=== PATIENT | male | born 1955 | race Caucasian/White ===

== ENCOUNTER 2019-05-19 07:59 | Inpatient (IN) ==
--- NOTE | 2019-04-16 11:51 | PAT Medication Instructions ---
Medication Instructions Date of Service April 16, 2019 Home Medications albuterol sulfate [Ventolin HFA] 2 puff INHALATION Q6H PRN allopurinol 100 mg PO QPM ascorbic acid (vitamin C) [Vitamin C] 500 mg PO QPM aspirin [Aspir-81] 81 mg PO QPM baclofen 10 mg PO TID calcium carbonate [Tums] 750 mg PO TID chlorthalidone 25 mg PO QAM cholecalciferol (vitamin D3) [Vitamin D3] 1,000 unit PO QAM cyanocobalamin (vitamin B-12) 500 mcg PO QAM dicyclomine 10 mg PO QID diphenoxylate-atropine 1 tab PO TID PRN docusate sodium [Stool Softener] 100 - 200 mg PO TID PRN epinephrine [EpiPen] 0.3 mg IM Q3H PRN fenofibrate 160 mg PO QAM fexofenadine [Jodie Allergy] 360 mg PO BID fluticasone propionate 1 spray INTRANASAL HS fluticasone propionate [Flovent HFA] 2 puff INHALATION BID insulin glargine [Lantus Solostar U-100 Insulin] 15 - 30 unit SUBCUT TID insulin lispro [Humalog U-100 Insulin] 15 unit SUBCUT BID insulin lispro [Humalog U-100 Insulin] 30 unit SUBCUT PM lorazepam 0.5 mg PO BID losartan 50 mg PO QPM magnesium oxide-Mg AA chelate 1 tab PO BID mirabegron [Myrbetriq] 25 mg PO QAM nitroglycerin [Nitromist] 0.4 mcg SUBLINGUAL UD PRN nortriptyline 10 - 20 mg PO BID potassium chloride 10 meq PO BID pravastatin 20 mg PO HS pregabalin [Lyrica] 150 mg PO BID ranitidine HCl 150 mg PO BID sildenafil (antihypertensive) 100 mg PO HS PRN tamsulosin 0.4 mg PO QPM trazodone 50 mg PO HS vitamin E 400 unit PO QPM escitalopram oxalate 5 mg PO QPM Continue as directed nitroglycerin [Nitromist] 0.4 mcg SUBLINGUAL UD PRN (if needed) epinephrine [EpiPen] 0.3 mg IM Q3H PRN (if needed) ASK your prescriber and surgeon aspirin [Aspir-81] 81 mg PO QPM STOP taking 2 weeks before surgery (or as soon as possible if surgery is within 2 weeks) vitamin E 400 unit PO QPM STOP taking 48 hours before surgery fenofibrate 160 mg PO QAM DO NOT take the morning of surgery baclofen 10 mg PO TID calcium carbonate [Tums] 750 mg PO TID chlorthalidone 25 mg PO QAM cholecalciferol (vitamin D3) [Vitamin D3] 1,000 unit PO QAM cyanocobalamin (vitamin B-12) 500 mcg PO QAM dicyclomine 10 mg PO QID diphenoxylate-atropine 1 tab PO TID PRN docusate sodium [Stool Softener] 100 - 200 mg PO TID PRN fexofenadine [Jodie Allergy] 360 mg PO BID insulin lispro [Humalog U-100 Insulin] 15 unit SUBCUT BID magnesium oxide-Mg AA chelate 1 tab PO BID mirabegron [Myrbetriq] 25 mg PO QAM potassium chloride 10 meq PO BID ranitidine HCl 150 mg PO BID Take morning of surgery With a small sip of water, OTHERWISE NOTHING TO EAT OR DRINK AFTER MIDNIGHT: albuterol sulfate [Ventolin HFA] 2 puff INHALATION Q6H PRN (if needed) fluticasone propionate [Flovent HFA] 2 puff INHALATION BID lorazepam 0.5 mg PO BID nortriptyline 10 - 20 mg PO BID pregabalin [Lyrica] 150 mg PO BID Take evening before surgery albuterol sulfate [Ventolin HFA] 2 puff INHALATION Q6H PRN (if needed) allopurinol 100 mg PO QPM ascorbic acid (vitamin C) [Vitamin C] 500 mg PO QPM baclofen 10 mg PO TID calcium carbonate [Tums] 750 mg PO TID dicyclomine 10 mg PO QID diphenoxylate-atropine 1 tab PO TID PRN (if needed) docusate sodium [Stool Softener] 100 - 200 mg PO TID PRN (if needed) fexofenadine [Jodie Allergy] 360 mg PO BID fluticasone propionate 1 spray INTRANASAL HS fluticasone propionate [Flovent HFA] 2 puff INHALATION BID insulin glargine [Lantus Solostar U-100 Insulin] 15 - 30 unit SUBCUT TID insulin lispro [Humalog U-100 Insulin] 15 unit SUBCUT BID insulin lispro [Humalog U-100 Insulin] 30 unit SUBCUT PM lorazepam 0.5 mg PO BID losartan 50 mg PO QPM magnesium oxide-Mg AA chelate 1 tab PO BID nortriptyline 10 - 20 mg PO BID potassium chloride 10 meq PO BID pravastatin 20 mg PO HS pregabalin [Lyrica] 150 mg PO BID ranitidine HCl 150 mg PO BID sildenafil (antihypertensive) 100 mg PO HS PRN (if needed) tamsulosin 0.4 mg PO QPM trazodone 50 mg PO HS escitalopram oxalate 5 mg PO QPM Insulin Dependent Diabetic Patients * Test your blood sugar the morning of surgery * If Blood Sugar is GREATER THAN 150, take HALF of your regular dose of: insulin glargine [Lantus Solostar U-100 Insulin] * If Blood Sugar is LESS THAN 150, DO NOT TAKE ANY: insulin glargine [Lantus Solostar U-100 Insulin] Other Notes If you have any questions please call us at [phone] or [phone] or [phone] or [phone]
--- NOTE | 2019-04-20 10:29 | Anesthesiology Consultation ---
Date of Service April 20, 2019 Assessment & Plan (1) Encounter for pre-operative examination: - Awaiting review preop testing (labs, CXR). - Awaiting surgeon-ordered PCP clearance scheduled 05/05 (Dr. Mills). - Awaiting surgeon-ordered cardiology clearance scheduled 04/29 (Dr. Anand). - Check BSG AM DOS Chart Review Chart Review: Patient seen in Pre Admission Testing awaiting medical and cardiac eval Teaching & Discussion Pre-Anesthesia Teaching/Discussion Notes: Instructed NPO after midnight before surgery,except medications with 15 cc of water. Medication instructions provided according to the PAT guidelines. History Surgery Operation Date: 05/19/19 09:25 Proposed Procedures p Left Total Knee Arthroplasty Patella Revision and Poly Exchange - Ivan Laws, Height/Weight Height: 5 ft 9 in Weight: 110.7 kg Allergies Allergy/AdvReac Type Severity Reaction Status Date / Time bee venom protein (honey bee) Allergy Severe Anaphylaxis-WITH Verified 04/13/19 10:55 ANY BEES mushroom Allergy Unknown Anaphylaxis Verified 04/13/19 10:55 atorvastatin AdvReac Unknown Unknown Verified 04/13/19 10:55 diphenhydramine AdvReac Unknown Unknown Verified 04/13/19 10:55 duloxetine AdvReac Unknown Unknown Verified 04/13/19 10:55 oxcarbazepine AdvReac Unknown Unknown Verified 04/13/19 10:55 Medications Home Medications Medication Instructions Recorded Confirmed Last Taken albuterol sulfate [Ventolin HFA] 2 puff INHALATION Q6H PRN 11/12/18 04/13/19 Unknown allopurinol 100 mg PO QPM 11/12/18 04/13/19 Unknown ascorbic acid (vitamin C) [Vitamin 500 mg PO QPM 11/12/18 04/13/19 Unknown C] aspirin [Aspir-81] 81 mg PO QPM 11/12/18 04/13/19 Unknown baclofen 10 mg PO TID 11/12/18 04/13/19 Unknown calcium carbonate [Tums] 750 mg PO TID 11/12/18 04/13/19 Unknown chlorthalidone 25 mg PO QAM 11/12/18 04/13/19 Unknown cholecalciferol (vitamin D3) 1,000 unit PO QAM 11/12/18 04/13/19 Unknown [Vitamin D3] cyanocobalamin (vitamin B-12) 500 mcg PO QAM 11/12/18 04/13/19 Unknown dicyclomine 10 mg PO QID 11/12/18 04/13/19 Unknown diphenoxylate-atropine 1 tab PO TID PRN 11/12/18 04/13/19 Unknown docusate sodium [Stool Softener] 100 - 200 mg PO TID PRN 11/12/18 04/13/19 Unknown epinephrine [EpiPen] 0.3 mg IM Q3H PRN 11/12/18 04/13/19 Unknown fenofibrate 160 mg PO QAM 11/12/18 04/13/19 Unknown fexofenadine [Jodie Allergy] 360 mg PO BID 11/12/18 04/13/19 Unknown fluticasone propionate 1 spray INTRANASAL HS 11/12/18 04/13/19 Unknown fluticasone propionate [Flovent 2 puff INHALATION BID 11/12/18 04/13/19 Unknown HFA] insulin glargine [Lantus Solostar 15 - 30 unit SUBCUT TID 11/12/18 04/13/19 Unknown U-100 Insulin] insulin lispro [Humalog U-100 15 unit SUBCUT BID 11/12/18 04/13/19 Unknown Insulin] insulin lispro [Humalog U-100 30 unit SUBCUT PM 11/12/18 04/13/19 Unknown Insulin] lorazepam 0.5 mg PO BID 11/12/18 04/13/19 Unknown losartan 50 mg PO QPM 11/12/18 04/13/19 Unknown magnesium oxide-Mg AA chelate 1 tab PO BID 11/12/18 04/13/19 Unknown mirabegron [Myrbetriq] 25 mg PO QAM 11/12/18 04/13/19 Unknown nitroglycerin [Nitromist] 0.4 mcg SUBLINGUAL UD PRN 11/12/18 04/13/19 Unknown nortriptyline 10 - 20 mg PO BID 11/12/18 04/13/19 Unknown potassium chloride 10 meq PO BID 11/12/18 04/13/19 Unknown pravastatin 20 mg PO HS 11/12/18 04/13/19 Unknown pregabalin [Lyrica] 150 mg PO BID 11/12/18 04/13/19 Unknown sildenafil (antihypertensive) 100 mg PO HS PRN 11/12/18 04/13/19 Unknown tamsulosin 0.4 mg PO QPM 11/12/18 04/13/19 Unknown trazodone 50 mg PO HS 11/12/18 04/13/19 Unknown vitamin E 400 unit PO QPM 11/12/18 04/13/19 Unknown escitalopram oxalate 5 mg PO QPM 04/13/19 04/13/19 Unknown famotidine 20 mg PO DAILY 04/20/19 04/20/19 Unknown Past Medical History Medical History Anxiety Arthritis Asthma BPH (benign prostatic hyperplasia) Chronic back pain Chronic kidney disease stage III Diabetes mellitus, type 2 IDDM GERD (gastroesophageal reflux disease) controlled Hyperlipidemia Hypertension IBS (irritable bowel syndrome) Kidney stones Migraine HX Myocardial Infarction age 18 and 2004 Sleep apnea BIPAP with 4L O2 HS Temporomandibular joint disorder right sided clicking/no locking Exercise / Class Metabolic Activity III < 4 Walking/Shop/Light housework Past Surgical History Surgical History H/O lymph node excision RIGHT AXILLA-BENIGN DX x 2-- residual lymphedema/wears compression stocking/advised for RUE limb restriction History of bone marrow biopsy History of cardiac cath 2003= NO STENTS History of cholecystectomy History of herniorrhaphy X 2 Left inguinal, Umbilical History of total knee replacement LEFT Hx of transurethral resection of prostate Past Anesthesia History No Hx of Anesthesia Complications and No Family Hx of Anesthesia Complications History of PONV No Hx of PONV and No Hx of Motion Sickness Social History Smoking Status: Former smoker tobacco type: cigarettes Do You Dip or Chew Tobacco: No Smoking End Date: QUIT 1-2 YRS AGO; hx ~4-5 CIGS A DAY Hx Alcohol Use: No Hx Substance Use: No Review of Systems Patient denies chest pain, shortness of breath, cough, wheezing, palpitations. Physical Exam Vital Signs VITALS BP 127/72 P 87 TEMP 98.2 SP02 95%RA RESP 16 PHYSICAL Full neck and c-spine range of motion. Full TMJ range of motion. TMD 3 finger breaths Mallampati Score 2 Dentition: edentulous Lungs: clear throughout to auscultation Cardiac: regular rate and rhythm, no murmurs noted Spine: normal Carotid arteries: negative bruit Extremities: no edema Trimmed eli Testing Laboratory Results 04/20/19 11:00 04/20/19 11:00 PT 10.6 Seconds (9.0-12.0) 04/20/19 11:00 INR 1.0 (0.9-1.1) 04/20/19 11:00 APTT 27.1 Seconds (21.0-31.0) 04/20/19 11:00 Hemoglobin A1c 5.9 % (4.5-5.6) H 04/20/19 11:00 Urine Color Yellow 04/20/19 11:00 Urine Appearance Clear (Clear) 04/20/19 11:00 Urine pH 5.5 (4.5-7.5) 04/20/19 11:00 Ur Specific Rawlings 1.016 (1.000-1.030) 04/20/19 11:00 Urine Protein Negative (Negative) 04/20/19 11:00 Urine Glucose (UA) Negative (Negative) 04/20/19 11:00 Urine Ketones Negative (Negative) 04/20/19 11:00 Urine Nitrite Negative (Negative) 04/20/19 11:00 Ur Leukocyte Esterase Negative (Negative) 04/20/19 11:00 Blood Type B Positive 04/20/19 11:00 Antibody Screen NEGATIVE 04/20/19 11:00 Electrocardiogram Date: 11/19/18 Findings: + NSR @ (71) Chest X-Ray Date: 11/19/18 Findings: + NAD Echocardiogram Date: 06/04/18 EF 50-55%. No RWMA. Trace W[place]/TI/PI. Stress Test Date: 06/04/18 Type: nuclear (Lexiscan) Normal myocardial perfusion SPECT images without evidence for pharmacologically induced ischemia. LVEF rest 44% (post stress 61%).
[2019-04-20 11:50] LABS: Appearance Urine Clear (Clear); Bilirubin Urine Negative (Negative); Blood Urine Negative (Negative); Color Urine Yellow; Glucose Urine UA Negative (Negative); Ketones Urine Negative (Negative); Leukocyte Esterase Urine Negative (Negative); Nitrite Urine Negative (Negative); Protein Urine Negative (Negative); Specific Gravity Urine 1.016 (1.000-1.030); Urobilinogen Urine Negative (Negative); pH Urine 5.5 (4.5-7.5)
[2019-04-20 11:56] LABS: Basophils # (auto) 0.05 K/uL (0-0.2); Basophils % (auto) 0.6 %; Eosinophils % (auto) 2.6 %; Hematocrit (blood only) 41.2 % (42-52); Hemoglobin 13.8 g/dL (14.0-18.0); Immature Granulocytes # (auto) 0.03 K/uL (0.00-0.02); Immature Granulocytes % (auto) 0.4 %; Lymphocytes # (auto) 2.34 K/uL (1.2-3.4); Lymphocytes % (auto) 30.1 %; Mean Corpuscular Hemoglobin 30.1 pg (25-34); Mean Corpuscular Hgb Conc 33.5 g/dL (32-36); Mean Corpuscular Volume 89.8 fL (80-100); Mean Platelet Volume 11.4 fL (7.4-10.4); Monocytes # (auto) 0.71 K/uL (0.11-0.59); Monocytes % (auto) 9.1 %; Neutrophils # (auto) 4.44 K/uL (1.4-6.5); Neutrophils % (auto) 57.2 %; Platelet Count 226 K/uL (130-400); RDW Standard Deviation 45.3 fL (36.4-46.3); Red Blood Count 4.59 M/uL (4.7-6.1); White Blood Count 7.77 K/uL (4.8-10.8)
[2019-04-20 12:04] LABS: Partial Thromboplastin Time 27.1 Seconds (21.0-31.0); Prothrombin Time 10.6 Seconds (9.0-12.0)
[2019-04-20 12:37] LABS: Albumin Level 3.7 gm/dl (3.4-5.0); BUN Creatinine Ratio 16.5 (10-20); Calcium 9.9 mg/dl (8.5-10.1); Creatinine Clr Calc Pharmacy 46.7 ml/min; Est GFR (Non-African American) 34.5; Potassium 4.1 mmol/L (3.5-5.1)
[2019-04-20 13:47] LABS: Estimated Average Glucose 123 mg/dl; Hemoglobin A1C 5.9 % (4.5-5.6)
--- NOTE | 2019-05-18 13:32 | History & Physical Report ---
Date of Service May 18, 2019 Assessment & Plan (1) Painful total knee replacement, left: I have indicated the patient for revision left total knee replacement, poly exchange, resurfacing patella. The risks, benefits and complications of surgery were explained to the patient which include but not limited to infection, acute blood loss, DVT/PE, injury to nerves, vessels, bone, soft tissue, arthrofibrosis, chronic pain, failure of the prosthesis, knee dislocation, leg length discrepancy, need for additional surgery, cardiac and pulmonary events and . The patient wished to proceed with surgery and informed consent was obtained at this time. We will plan for 81mg ASA BID post- operatively for DVT prophylaxis. Upon discharge the patient will be discharged home with home health services. Appropriate clearances by PCP, cardiology and nephrology were obtained. The patient has known stable stage 3 CKD. We will avoid nephrotoxic medications, monitor labs and have patient follow up with PCP and tie inspector post operatively. History of Present Illness Chief Complaint: Painful Left total knee Primary Care Provider: Kiran Mills MD The patient is a 63 year old male who presents with complaints of painful total knee replacement, unresurfaced patella and instability. The patient has failed outpatient conservative treatments to this point which included Bracing, NSAIDs, home exercise/walking program. The patient's pain and limited function have progressed to the point where they severely hinder their activities of daily living and they no longer tolerate exercise programs. They are requesting to proceed with revision total knee replacement surgery. Allergies Allergy/AdvReac Type Severity Reaction Status Date / Time bee venom protein (honey bee) Allergy Severe Anaphylaxis-WITH Verified 05/19/19 08:33 ANY BEES mushroom Allergy Unknown Anaphylaxis Verified 05/19/19 08:33 atorvastatin AdvReac Unknown Unknown Verified 05/19/19 08:33 diphenhydramine AdvReac Unknown Unknown Verified 05/19/19 08:33 duloxetine AdvReac Unknown Unknown Verified 05/19/19 08:33 oxcarbazepine AdvReac Unknown Unknown Verified 05/19/19 08:33 Home Medications Home Medications Medication Instructions Recorded Confirmed Type albuterol sulfate [Ventolin HFA] 2 puff INHALATION Q6H PRN 11/12/18 05/19/19 History allopurinol 100 mg PO QPM 11/12/18 05/19/19 History ascorbic acid (vitamin C) [Vitamin 500 mg PO QPM 11/12/18 05/19/19 History C] aspirin [Aspir-81] 81 mg PO QPM 11/12/18 05/19/19 History baclofen 10 mg PO TID 11/12/18 05/19/19 History calcium carbonate [Tums] 750 mg PO TID 11/12/18 05/19/19 History chlorthalidone 25 mg PO QAM 11/12/18 05/19/19 History cholecalciferol (vitamin D3) 1,000 unit PO QAM 11/12/18 05/19/19 History [Vitamin D3] cyanocobalamin (vitamin B-12) 500 mcg PO QAM 11/12/18 05/19/19 History dicyclomine 10 mg PO QID 11/12/18 05/19/19 History diphenoxylate-atropine 1 tab PO TID PRN 11/12/18 04/13/19 History docusate sodium [Stool Softener] 100 - 200 mg PO TID PRN 11/12/18 04/13/19 History epinephrine [EpiPen] 0.3 mg IM Q3H PRN 11/12/18 04/13/19 History fenofibrate 160 mg PO QAM 11/12/18 05/19/19 History fexofenadine [Jodie Allergy] 360 mg PO BID 11/12/18 05/19/19 History fluticasone propionate 1 spray INTRANASAL HS 11/12/18 05/19/19 History fluticasone propionate [Flovent 2 puff INHALATION BID 11/12/18 05/19/19 History HFA] insulin glargine [Lantus Solostar 15 - 30 unit SUBCUT TID 11/12/18 05/19/19 History U-100 Insulin] insulin lispro [Humalog U-100 15 unit SUBCUT BID 11/12/18 05/19/19 History Insulin] insulin lispro [Humalog U-100 20 unit SUBCUT PM 11/12/18 05/19/19 History Insulin] lorazepam 0.5 mg PO BID 11/12/18 05/19/19 History losartan 50 mg PO QPM 11/12/18 05/19/19 History magnesium oxide-Mg AA chelate 1 tab PO BID 11/12/18 05/19/19 History mirabegron [Myrbetriq] 25 mg PO QAM 11/12/18 05/19/19 History nitroglycerin [Nitromist] 0.4 mcg SUBLINGUAL UD PRN 11/12/18 04/13/19 History nortriptyline 10 - 20 mg PO BID 11/12/18 05/19/19 History potassium chloride 10 meq PO BID 11/12/18 05/19/19 History pravastatin 20 mg PO HS 11/12/18 05/19/19 History pregabalin [Lyrica] 150 mg PO BID 11/12/18 05/19/19 History sildenafil (pulm.hypertension) 100 mg PO HS PRN 11/12/18 05/19/19 History tamsulosin 0.4 mg PO QPM 11/12/18 05/19/19 History trazodone 50 mg PO HS 11/12/18 05/19/19 History vitamin E 400 unit PO QPM 11/12/18 05/19/19 History escitalopram oxalate 5 mg PO QPM 04/13/19 05/19/19 History Past Med/Surg History Medical History Anxiety Arthritis Asthma BPH (benign prostatic hyperplasia) Chronic back pain Chronic kidney disease stage III Diabetes mellitus, type 2 IDDM GERD (gastroesophageal reflux disease) controlled Hyperlipidemia Hypertension IBS (irritable bowel syndrome) Kidney stones Migraine HX Myocardial Infarction age 18 and 2004 Sleep apnea BIPAP with 4L O2 HS Temporomandibular joint disorder right sided clicking/no locking Surgical History (Updated 05/19/19 @ 08:32 by Sarah Cloud RN) H/O lymph node excision RIGHT AXILLA-BENIGN DX x 2-- residual lymphedema/wears compression stocking/advised for RUE limb restriction History of bone marrow biopsy History of cardiac cath 2004= NO STENTS History of cholecystectomy History of herniorrhaphy X 2 Left inguinal, Umbilical History of surgery (Acute) Left testicle History of total knee replacement LEFT Hx of transurethral resection of prostate Social History Preferred Language: Yi Communication Ability: Effective Reel Tender Required: No Beliefs That Will Affect Care: None Current Living Situation: Alone Other Information That Helps Us Care for You: No Feels Safe at Home: Yes Safety Concerns: Feels Safe At This Time Smoking Status: Former smoker Tobacco Type: cigarettes ; Do You Dip or Chew Tobacco: No ; Smoking End Date: QUIT 1-2 YRS AGO; hx ~4-5 CIGS A DAY ; Second Hand Exposure: Yes (ON OCC) ; Hx Alcohol Use: No Hx Substance Use: No Review of Systems Review of Systems: All systems reviewed & are unremarkable except as noted in HPI & below Constitutional: as per Subjective / HPI Physical Exam Physical Exam: LLE NVSI +EHL/FHL/TA/GS SILT grossly, +2 DP pulse, compartments soft NT, painful ROM 0-125 degrees of flexion, +moderate patella creptius. moderate instability. Constitutional: WD/WN, vitals as above Eyes: PERRL, conjunctivae normal, anicteric sclerae ENMT: external ear and nose normal, oropharynx normal Neck: trachea midline, no thyromegaly Respiratory: normal respiratory effort, lungs clear to auscultation Cardiovascular: RRR, no murmur, no edema Gastrointestinal (Abdomen): normal bowel sounds, soft, nontender, no hepatosplenomegaly Musculoskeletal: no cyanosis or clubbing, extremities motor strength 5/5 Skin: no rashes, warm and dry Neurologic: patellar DTR's 2+ bilat, sensation intact Psychiatric: A+Ox3, euthymic affect Lymphatic: no cervical or axillary lymphadenopathy Results & Data Diagnostic Findings Multiple XRs of the left knee demonstrate well aligned well fixed total knee prothesis, unresurfaced patella with arthritic changes/ostephytes.
[~2019-05-19 07:59] MED LIST: ACETAMINOPHEN 500 MG TAB PO SCH; BUPIVACAINE 0.5 % 5 MG/1 ML PF 10ML VIAL ONE; BUPIVACAINE/EPINEPHRINE 0.25% 1:200,000 30 ML VIAL ONE; CEFAZOLIN 2000MG 2,000 MG/15 ML SYR IV SCH; CeleBREX 200 MG CAP PO SCH; FAMOTIDINE 20 MG TAB PO SCH; GABAPENTIN 600 MG DOSE PO SCH; LIDOCAINE HCL 2% 2 ML VIAL/AMP(20MG/ML) INFIL ONE; LR 500ML BOLUS, THEN 15ML/HR IV SCH; MIDAZOLAM HCL 1 MG/ML 2ML VIAL ONE; ONDANSETRON INJ 2 MG/ML 2 ML VIAL ONE; PROPOFOL IV EMULSION 10 MG/ML 20 ML VIAL IV ONE; dexAMETHasone 4 MG TAB PO SCH; fentaNYL citrate 100 MCG/2 ML VIAL ONE
[2019-05-19] MEDS ORDERED: DEXTROSE 50% 50 ML SYRINGE IV ONE ×2 (08:40→08:41)
[2019-05-19] MEDS ORDERED: DEXTROSE 5% 500 ML IV SCH (08:45)
--- NOTE | 2019-05-19 09:04 | History & Physical Bridge Note ---
Date of Service May 19, 2019 History & Physical Bridge Note I have examined the patient, reviewed the History & Physical and in the interval since the performance of the History & Physical I have noted the following changes of clinical significance: no changes noted
[2019-05-19] MEDS ORDERED: BACITRACIN INJ 50,000 UNIT VIAL ONE (10:00)
[2019-05-19] MEDS ORDERED: ROPIVACAINE 0.5% HCL/PF 150 MG, BUPIVACAINE 0.5% MPF 30 ML, EPINEPHrine 0.15 MG, Ketoro... INFIL STA (10:07)
[2019-05-19] MEDS ORDERED: MIDAZOLAM HCL 1 MG/ML 2ML VIAL ONE (11:27)
[2019-05-19] MEDS ORDERED: PROPOFOL IV EMULSION 10 MG/ML 20 ML VIAL IV ONE ×2 (11:54→12:30)
[2019-05-19] MEDS ORDERED: TRANEXAMIC ACID 1,000 MG in 0.9 % SODIUM CHLORIDE 100 ML IV SCH ×2 (12:00→12:30)
--- NOTE | 2019-05-19 12:31 | Post Operative Brief Note ---
Immediate Post Op Note v1 Date of Surgery May 19, 2019 Pre & Post Diagnosis Operation Date: 05/19/19 10:35 Pre-Op Diagnosis: LEFT KNEE PAIN DUE TO INTERNAL ORTHOPEDIC PROSTHETIC Post-Op Diagnosis: LEFT KNEE PAIN DUE TO INTERNAL ORTHOPEDIC PROSTHETIC I identified the patient and participated in the time-out.: Yes Procedure Operation Date: 05/19/19 10:35 Actual Procedures p Left Total Knee Arthroplasty Patella Revision and Poly Exchange(Left) - Ivan Laws DO Surgeon Ivan Laws DO Picking Crew Supervisor Jean Claude Ruiz Estimated Blood Loss 20 Findings Consistent with Post-Op Diagnosis Fluids 1100 CC LR Specimens none Anesthesia Type Spinal MAC Complications none Disposition Disposition: Recovery Room Overlapping Procedure I was present for: the critical portions of procedure. I was immediately available: during the entire case. Back up surgeon: was not required during procedure.
--- NOTE | 2019-05-19 12:48 | Operative Report ---
Post Operative Report Pre & Post Diagnosis Operation Date: 05/19/19 10:35 Pre-Op Diagnosis: LEFT KNEE PAIN DUE TO INTERNAL ORTHOPEDIC PROSTHETIC Post-Op Diagnosis: LEFT KNEE PAIN DUE TO INTERNAL ORTHOPEDIC PROSTHETIC I identified the patient and participated in the time-out.: Yes Procedure Operation Date: 05/19/19 10:35 Actual Procedures p Left Total Knee Arthroplasty Patella Revision and Poly Exchange(Left) - Ivan Laws DO Surgeon Ivan Laws DO Analytical Sciences Director Jean Claude Ruiz Estimated Blood Loss 20 Findings Consistent with Post-Op Diagnosis Specimens none Anesthesia Type Spinal MAC Complications none Disposition Disposition: Recovery Room Indications The patient is a 63 year old male who presents with complaints of painful total knee replacement, unresurfaced patella and instability. The patient has failed outpatient conservative treatments to this point which included Bracing, NSAIDs, home exercise/walking program. The patient's pain and limited function have progressed to the point where they severely hinder their activities of daily living and they no longer tolerate exercise programs. They are requesting to proceed with revision total knee replacement surgery. I have indicated the patient for revision left total knee replacement, poly exchange, resurfacing patella. The risks, benefits and complications of surgery were explained to the patient which include but not limited to infection, acute blood loss, DVT/PE, injury to nerves, vessels, bone, soft tissue, arthrofibrosis, chronic pain, failure of the prosthesis, knee dislocation, leg length discrepancy, need for additional surgery, cardiac and pulmonary events and . The patient wished to proceed with surgery and informed consent was obtained at this time. We will plan for 81mg ASA BID post-operatively for DVT prophylaxis. Upon discharge the patient will be discharged home with home health services. Appropriate clearances by PCP, cardiology and nephrology were obtained. The patient has known stable stage 3 CKD. We will avoid nephrotoxic medications, monitor labs and have patient follow up with PCP and manager audit post operatively. Description of Procedure COMPONENTS USED: Markus triathlon knee system: Tibial articulating surface 13 PS, Patella 36 mm Following induction of spinal anesthesia, a tourniquet was applied to the proximal aspect of the thigh and the patient's left leg was prepped and draped in the usual sterile manner. A timeout was performed, patient identified and site del confirmed. Appropriate pre-operative IV antibiotics were given. The limb was exsanguinated with an Esmarch bandage and tourniquet was inflated to 300 mmHg. A longitudinal midline incision was made in line with previous incision over the anterior knee. Subcutaneous tissue was sharply dissected down to fascia. Electrocautery was used for hemostasis. Next a parapatellar arthrotomy was performed. Patella was everted and the knee was flexed. A Dominguez retractor was used to expose the synovium above on the anterior aspect of the femur and removed down to bone. Next, the anterior fat pad was removed to aid in visualization. The medial face of the tibia was cleared of soft tissue first with a Bovie and a patel elevator. This tissue was retracted posteriorly using a blunt Hohmann. I carefully inspected the femur and tibia components which were found to be stable without signs of loosening. At this time the tibial articular surface was removed. A trial size 13 tibia articular tray was placed and varus-valgus balance assessed in 0 degrees of extension and 30, 60 and 90 degrees of flexion. A final tibial articular surface size 13 PS was chosen. Assess was gained to the patella and surrounding soft tissue was removed with Bovie. The patella demonstrated severe signs of wear with complete loss of the articular cartilage down to bone. There was osteophytes present. These were carefully removed with rongour. A caliper was utilized to measure width. The patella reamer was utilized and remaining bone removed with oscillating saw. A size 36mm patella button was selected and the patella pegs drilled. Trial patella button was placed and tracking was assessed. The knee was found to be well balanced, well aligned with excellent patella tracking. The trials were removed and final components were obtained and assembled. The knee was irrigated copiously with sterile saline solution mixed with bacitracin. The tibial tray was inspected and cleared of any residual soft tissue. A final tibial articular surface sized 13 PS was inserted at this time. Next access was gained to the patella which was dried thoroughly and a size 36 mm patella button was cemented into place and held in place until cement hardened. All excess cement was carefully removed. Knee stability was once again assessed and found to be stable in all degrees of range of motion with a well tracking patella. A Betadine soak was performed. After 3 minutes, the knee was once more irrigated with copious sterile saline solution with bacitracin. The knee was injected with Orthomix solution which includes a combination of Ropivicaine 0.5% 150mg, Bupivicaine 0.5%/Epinephrine 1:200,000 30ml, Toradol 30mg, Dexamethasone 4mg, Ketamine 10mg, Clonidine 100mcg and NSS 30ml solution. The capsulotomy was closed with #1 Vicryl followed by subcutaneous closure with 2-0 Vicryl suture. Skin was closed with allison. A sterile dressing was applied which included Silverlon, Webril Jarret wrap. Tourniquet was deflated at 73 minutes. The patient tolerated the procedure well and was taken to the PACU in stable condition. Due to the complex nature of the procedure, the entire surgery was performed with the operational assistance of Jean Claude Ruiz PA-C. The school health assistant, under direct supervision, was involved in the actual performance of all aspects of the surgical procedure including patient positioning, hemostasis, tissue retraction, instrument management and wound closure. I attest to the content of the Intraoperative Record and any orders documented therein. Any exceptions are noted below.
--- NOTE | 2019-05-19 13:47 | Anesthesiology Progress Note ---
Date of Service May 19, 2019 Anesthesia Post Procedure Vital Signs Vital Signs: Temp Pulse Pulse Resp BP Pulse Ox 05/19/19 13:40 98.1 F 74 12 116/58 L 96 05/19/19 13:30 78 12 116/57 L 96 05/19/19 13:20 80 12 111/56 L 95 05/19/19 13:10 88 14 115/52 L 95 05/19/19 13:03 97.5 F L 92 H 14 113/46 L 93 05/19/19 09:06 98.1 F 83 20 150/76 H 93 Pain Intensity Left Knee: Pain Intensity: 5 Transfer of Care Handoff Completed per policy Notes Mental Status: alert / awake / arousable and participated in evaluation Patient Amnestic to Procedure: Yes Nausea / Vomiting: adequately controlled Pain: adequately controlled Airway Patency, RR, SpO2: stable & adequate BP & HR: stable & adequate Hydration State: stable & adequate Neuraxial Anesthesia: was administered and sensory block is resolving Anesthetic Complications: no major complications apparent and Pt Satisfied with anesthetic care
--- NOTE | 2019-05-19 13:56 | XRay Report ---
TWO VIEWS LEFT KNEE CLINICAL HISTORY: Postoperative examination. FINDINGS: AP and crosstable lateral portable views of the left knee are obtained. A left knee arthrop lasty is in near anatomic alignment. There has been undersurface remodeling of the patella. No acute fracture is seen. There are expected postoperative changes around the knee including skin clips, soft tissue edema, and subcutaneous gas. IMPRESSION: Expected postoperative changes status post left knee arthroplasty. No acute fracture is s een. Electronically signed by: Roosevelt Tran M.D. 05/19/2019 1:55 PM
[2019-05-19] MEDS ORDERED: HYDROmorphone INJ 0.5 MG/0.5 ML SYR IV PRN (15:50)
[2019-05-19] MEDS ORDERED: SODIUM CHLORIDE 0.9% 1000ML 1,000 ML IV SCH (15:50)
[2019-05-19] MEDS ORDERED: BISACODYL 10 MG SUPP PR PRN (15:50)
[2019-05-19] MEDS ORDERED: NALOXONE HCL 0.4 MG/1 ML VIAL/CARP IV PRN (15:50)
[2019-05-19] MEDS ORDERED: ALBUTEROL HFA 8 GM INHALER INH PRN (15:50)
[2019-05-19] MEDS ORDERED: MAGNESIUM HYDROXIDE SUSP 30 ML UDC PO PRN (15:50)
[2019-05-19] MEDS ORDERED: OXYCODONE HCL IR 5 MG TAB (IMMEDIATE RELEASE) PO PRN (15:50)
[2019-05-19] MEDS ORDERED: ONDANSETRON INJ 2 MG/ML 2 ML VIAL IV PRN (15:50)
[2019-05-19] MEDS ORDERED: METOCLOPRAMIDE HCL INJ 5 MG/ML 2 ML VIAL IV PRN (15:50)
[2019-05-19] MEDS ORDERED: PHARMACY GLYCEMIC MGMT CONSULT PRN (16:10)
[2019-05-19] MEDS ORDERED: CARBOHYDRATES FOR HYPOGLYCEMIA PO PRN (16:30)
[2019-05-19] MEDS ORDERED: DEXTROSE 50% 50 ML SYRINGE IV PRN (16:30)
[2019-05-19] MEDS ORDERED: GLUCOSE 40% GEL 15 GM TUBE PO PRN (16:30)
[2019-05-19] MEDS ORDERED: GLUCAGON FOR INJ 1 MG VIAL IM PRN (16:30)
[2019-05-19] MEDS ORDERED: GLUCOSE 10 TABS/TUBE PO PRN (16:30)
--- NOTE | 2019-05-19 18:04 | Orthopedic Progress Note ---
Date of Service May 19, 2019 Assessment & Plan (1) Painful total knee replacement, left: s/p Revision L TKA, poly exchange, resurfacing patella -ancef x 24 -DVT ppx: SCDs, TEDs, 81mg ASA BID -WBAT LLE -PT/OT -PO XR demonstrates a well aligned well fixed prothesis without fracture disl ocation -am labs -DC planning Subjective Post Operative Progress Note Patient seen sitting up in bed, comfortable, denies complaints, pain well cont rolled, no acute issues. Still feeling effects of spinal anesthesia. Review of Systems Review of Systems: All systems reviewed & are unremarkable except as noted in HPI & below Constitutional: as per Subjective / HPI Physical Exam Physical Exam: LLE PE limited secondary to spinal anesthesia, +2 DP pulse, compartments soft NT, dressing CDI. Constitutional: WD/WN, vitals as above Results & Data Vital Signs (Past 12 Hours) Vital Signs Temp Pulse Pulse Pulse Resp BP Pulse Ox 05/19/19 16:20 36.7 C 66 18 119/71 98 05/19/19 15:50 36.4 C L 73 16 123/71 96 05/19/19 15:00 36.7 C 73 12 118/65 95 05/19/19 14:45 36.7 C 77 16 116/64 94 05/19/19 14:30 36.7 C 74 16 113/60 93 05/19/19 14:20 36.7 C 75 14 124/62 95 05/19/19 14:10 36.7 C 79 14 121/70 94 05/19/19 14:00 36.7 C 74 13 115/60 94 05/19/19 13:50 36.7 C 74 12 117/60 96 05/19/19 13:40 36.7 C 74 12 116/58 L 96 05/19/19 13:30 78 12 116/57 L 96 05/19/19 13:20 80 12 111/56 L 95 05/19/19 13:10 88 14 115/52 L 95 05/19/19 13:03 36.4 C L 92 H 14 113/46 L 93 05/19/19 09:06 36.7 C 83 20 150/76 H 93
[2019-05-19] MEDS: INSULIN GLARGINE SOLOSTAR 100 UNITS/ML 3 ML PEN SC SCH (18:51)
[2019-05-19] MEDS: INSULIN ASPART 100 UNITS/ML 3 ML PEN SC SCH ×2 (18:52→21:31)
[2019-05-19] MEDS: ACETAMINOPHEN 500 MG TAB PO SCH (18:53)
[2019-05-19] MEDS: DICYCLOMINE HCL 10 MG CAP PO SCH ×2 (18:53→21:30)
[2019-05-19] MEDS: CEFAZOLIN 2000MG 2,000 MG/15 ML SYR IV SCH (18:54)
[2019-05-19] MEDS ORDERED: MAGNESIUM OXIDE AA CHELATE PO SCH (21:00)
[2019-05-19] MEDS ORDERED: NORTRIPTYLINE HCL 10 MG CAP PO SCH (21:00)
[2019-05-19] MEDS ORDERED: ASCORBIC ACID 500 MG TAB PO SCH (21:00)
[2019-05-19] MEDS ORDERED: ESCITALOPRAM OXALATE 10 MG TAB PO SCH (21:00)
[2019-05-19] MEDS ORDERED: SENNA 8.6 MG TAB PO SCH (21:00)
[2019-05-19] MEDS ORDERED: ALLOPURINOL 100 MG TAB PO SCH (21:00)
[2019-05-19] MEDS ORDERED: PRAVASTATIN SOD 20 MG TAB PO SCH (21:00)
[2019-05-19] MEDS ORDERED: TAMSULOSIN HCL 0.4 MG CAP PO SCH (21:00)
[2019-05-19] MEDS ORDERED: LOSARTAN POTASSIUM 50 MG TAB PO SCH (21:00)
[2019-05-19] MEDS: POTASSIUM CHLORIDE 10 MEQ TABCR PO SCH (21:30)
[2019-05-19] MEDS: DOCUSATE SODIUM 100 MG CAP PO SCH (21:30)
[2019-05-19] MEDS: LORazepam 0.5 MG TAB PO SCH (21:30)
[2019-05-19] MEDS: PREGABALIN 150 MG CAP PO SCH (21:46)
[2019-05-20] MEDS: INSULIN ASPART 100 UNITS/ML 3 ML PEN SC SCH ×5 (00:29→17:20)
[2019-05-20] MEDS: CEFAZOLIN 2000MG 2,000 MG/15 ML SYR IV SCH (02:50)
[2019-05-20 05:58] LABS: Hematocrit (blood only) 37.7 % (42-52); Hemoglobin 12.6 g/dL (14.0-18.0); Mean Corpuscular Hemoglobin 29.9 pg (25-34); Mean Corpuscular Hgb Conc 33.4 g/dL (32-36); Mean Corpuscular Volume 89.5 fL (80-100); Mean Platelet Volume 10.6 fL (7.4-10.4); Platelet Count 229 K/uL (130-400); RDW Coefficient of Variation 13.3 % (11.5-14.5); RDW Standard Deviation 43.6 fL (36.4-46.3); Red Blood Count 4.21 M/uL (4.7-6.1); White Blood Count 12.65 K/uL (4.8-10.8)
[2019-05-20] MEDS: ACETAMINOPHEN 500 MG TAB PO SCH ×2 (06:03→13:07)
[2019-05-20 06:33] LABS: BUN Creatinine Ratio 16.1 (10-20); Calcium 9.2 mg/dl (8.5-10.1); Creatinine Clr Calc Pharmacy 43.3 ml/min; Est GFR (African American) 36.3; Est GFR (Non-African American) 31.3
[2019-05-20] MEDS: PREGABALIN 150 MG CAP PO SCH (07:57)
[2019-05-20] MEDS: LORazepam 0.5 MG TAB PO SCH (07:57)
[2019-05-20] MEDS: DOCUSATE SODIUM 100 MG CAP PO SCH (07:58)
[2019-05-20] MEDS: POTASSIUM CHLORIDE 10 MEQ TABCR PO SCH (07:59)
[2019-05-20] MEDS: DICYCLOMINE HCL 10 MG CAP PO SCH ×3 (07:59→16:55)
--- NOTE | 2019-05-20 08:17 | Anesthesiology Progress Note ---
Date of Service May 20, 2019 Anesthesia Post Procedure Vital Signs Vital Signs: Temp Pulse Pulse Pulse Pulse Resp BP 05/20/19 07:25 36.8 C 82 20 135/67 05/20/19 07:15 81 05/20/19 03:13 36.5 C 68 18 119/61 05/20/19 00:20 84 05/20/19 00:04 36.7 C 75 18 125/65 05/19/19 20:11 37.1 C 84 18 128/72 05/19/19 18:20 37.0 C 79 18 05/19/19 17:20 37.1 C 78 18 05/19/19 16:20 36.7 C 66 18 05/19/19 15:50 36.4 C L 73 16 05/19/19 15:00 36.7 C 73 12 05/19/19 14:45 36.7 C 77 16 05/19/19 14:30 36.7 C 74 16 05/19/19 14:20 36.7 C 75 14 05/19/19 14:10 36.7 C 79 14 05/19/19 14:00 36.7 C 74 13 05/19/19 13:50 36.7 C 74 12 05/19/19 13:40 36.7 C 74 12 05/19/19 13:30 78 12 05/19/19 13:20 80 12 05/19/19 13:10 88 14 05/19/19 13:03 36.4 C L 92 H 14 05/19/19 09:06 36.7 C 83 20 BP Pulse Ox 05/20/19 07:25 92 05/20/19 07:15 05/20/19 03:13 98 05/20/19 00:20 05/20/19 00:04 97 05/19/19 20:11 97 05/19/19 18:20 135/75 98 05/19/19 17:20 143/74 H 97 05/19/19 16:20 119/71 98 05/19/19 15:50 123/71 96 05/19/19 15:00 118/65 95 05/19/19 14:45 116/64 94 05/19/19 14:30 113/60 93 05/19/19 14:20 124/62 95 05/19/19 14:10 121/70 94 05/19/19 14:00 115/60 94 05/19/19 13:50 117/60 96 05/19/19 13:40 116/58 L 96 05/19/19 13:30 116/57 L 96 05/19/19 13:20 111/56 L 95 05/19/19 13:10 115/52 L 95 05/19/19 13:03 113/46 L 93 05/19/19 09:06 150/76 H 93 Pain Intensity Left Knee: Pain Intensity: 5 Notes Mental Status: alert / awake / arousable and participated in evaluation Patient Amnestic to Procedure: Yes Nausea / Vomiting: adequately controlled Pain: adequately controlled Airway Patency, RR, SpO2: stable & adequate BP & HR: stable & adequate Hydration State: stable & adequate Neuraxial Anesthesia: was administered and sensory block resolved Anesthetic Complications: no major complications apparent and Pt Satisfied with anesthetic care
[2019-05-20] MEDS ORDERED: MIRABEGRON ER 25 MG TAB PO SCH (09:00)
[2019-05-20] MEDS ORDERED: ASPIRIN 81 MG ECTAB PO SCH (09:00)
[2019-05-20] MEDS ORDERED: FENOFIBRATE NANOCRYSTALLIZED 145 MG TABLET PO SCH (09:00)
[2019-05-20] MEDS ORDERED: MULTIVITAMIN TAB PO SCH (09:00)
[2019-05-20] MEDS ORDERED: CHLORTHALIDONE 25 MG TAB PO SCH (09:00)
[2019-05-20] MEDS ORDERED: CHOLECALCIFEROL 1,000 UNITS TAB PO SCH (09:00)
[2019-05-20] MEDS ORDERED: CYANOCOBALAMIN 500 MCG TABLET (VITAMIN B-12) PO SCH (09:00)
[2019-05-20] MEDS ORDERED: NORTRIPTYLINE HCL 10 MG CAP PO SCH (09:00)
[2019-05-20] MEDS ORDERED: INSULIN GLARGINE SOLOSTAR 100 UNITS/ML 3 ML PEN SC SCH (10:00)
--- NOTE | 2019-05-20 12:53 | Orthopedic Progress Note ---
Date of Service May 20, 2019 Assessment & Plan (1) Painful total knee replacement, left: s/p Revision L TKA, poly exchange, resurfacing patella POD#1 -ancef x 24 -DVT ppx: SCDs, TEDs, 81mg ASA BID -WBAT LLE -PT/OT -PO XR demonstrates a well aligned well fixed prothesis without fracture dislocation -am labs: Hgb 12.6, Cr 2.18. Has hx stable CKD III, will provide order for repeat BMP at discharge and recommended follow up with PCP and Digital Operations Analyst within 1 week of DC. -DC planning - Home with HH Subjective Post Operative Progress Note Patient seen sitting up in bed, comfortable, denies complaints, pain well controlled, no acute issues. Denies N/V/F/C/SOP/CP. Review of Systems Review of Systems: All systems reviewed & are unremarkable except as noted in HPI & below Constitutional: as per Subjective / HPI Physical Exam Physical Exam: LLE NVSI +EHL/FHL/TA/GS SILT grossly, +2 DP pulse, compartments soft NT, dressing cdi. Constitutional: WD/WN, vitals as above Results & Data Vital Signs (Past 12 Hours) Vital Signs Temp Pulse Pulse Resp BP Pulse Ox 05/20/19 11:19 36.7 C 81 20 121/56 L 91 05/20/19 07:25 36.8 C 82 20 135/67 92 05/20/19 07:15 81 05/20/19 03:13 36.5 C 68 18 119/61 98 Laboratory Results 05/20/19 05/20/19 05/20/19 Range/Units 11:41 09:41 05:31 WBC (4.8-10.8) K/uL RBC (4.7-6.1) M/uL Hgb (14.0-18.0) g/dL Hct (42-52) % MCV (80-100) fL MCH (25-34) pg MCHC (32-36) g/dL RDW Std Deviation (36.4-46.3) fL RDW Coeff of Shaneka (11.5-14.5) % Plt Count (130-400) K/uL MPV (7.4-10.4) fL Sodium 139 (136-145) mmol/L Potassium 4.0 (3.5-5.1) mmol/L Chloride 107 (98-107) mmol/L Carbon Dioxide 24 (21-32) mmol/L Anion Gap 8.0 (3-11) BUN 35 H (7-18) mg/dl Creatinine 2.18 H (0.6-1.4) mg/dl Est Cr Clr Drug Dosing 43.3 ml/min Est GFR ( Amer) 36.3 Est GFR (Non-Af Amer) 31.3 BUN/Creatinine Ratio 16.1 (10-20) Glucose 153 H (70-99) mg/dl POC Glucose 185 H 175 H (70-99) Calcium 9.2 (8.5-10.1) mg/dl 05/20/19 05/20/19 05/20/19 Range/Units 05:31 04:01 00:13 WBC 12.65 H (4.8-10.8) K/uL RBC 4.21 L (4.7-6.1) M/uL Hgb 12.6 L (14.0-18.0) g/dL Hct 37.7 L (42-52) % MCV 89.5 (80-100) fL MCH 29.9 (25-34) pg MCHC 33.4 (32-36) g/dL RDW Std Deviation 43.6 (36.4-46.3) fL RDW Coeff of Shaneka 13.3 (11.5-14.5) % Plt Count 229 (130-400) K/uL MPV 10.6 H (7.4-10.4) fL Sodium (136-145) mmol/L Potassium (3.5-5.1) mmol/L Chloride (98-107) mmol/L Carbon Dioxide (21-32) mmol/L Anion Gap (3-11) BUN (7-18) mg/dl Creatinine (0.6-1.4) mg/dl Est Cr Clr Drug Dosing ml/min Est GFR ( Amer) Est GFR (Non-Af Amer) BUN/Creatinine Ratio (10-20) Glucose (70-99) mg/dl POC Glucose 150 H 122 H (70-99) Calcium (8.5-10.1) mg/dl 05/19/19 05/19/19 05/19/19 Range/Units 20:42 16:06 13:06 WBC (4.8-10.8) K/uL RBC (4.7-6.1) M/uL Hgb (14.0-18.0) g/dL Hct (42-52) % MCV (80-100) fL MCH (25-34) pg MCHC (32-36) g/dL RDW Std Deviation (36.4-46.3) fL RDW Coeff of Shaneka (11.5-14.5) % Plt Count (130-400) K/uL MPV (7.4-10.4) fL Sodium (136-145) mmol/L Potassium (3.5-5.1) mmol/L Chloride (98-107) mmol/L Carbon Dioxide (21-32) mmol/L Anion Gap (3-11) BUN (7-18) mg/dl Creatinine (0.6-1.4) mg/dl Est Cr Clr Drug Dosing ml/min Est GFR ( Amer) Est GFR (Non-Af Amer) BUN/Creatinine Ratio (10-20) Glucose (70-99) mg/dl POC Glucose 149 H 199 H 150 H (70-99) Calcium (8.5-10.1) mg/dl
--- NOTE | 2019-05-20 15:16 | Pharmacy Report ---
Pharmacy Glycemic Short Note 2 - Date of Service May 20, 2019 - Glycemic Short BSG Results (Last 24 hours): 05/19/19 05/19/19 05/20/19 16:06 20:42 00:13 Glucose POC Glucose 199 H 149 H 122 H 05/20/19 05/20/19 05/20/19 04:01 05:31 09:41 Glucose 153 H POC Glucose 150 H 175 H 05/20/19 11:41 Glucose POC Glucose 185 H OUTPATIENT ANTIDIABETIC REGIMEN: * Lantus 20 units qAM, 24 units qPM with dinner + humalog with meals * A1c= 5.9% 04/20/19 ASSESSMENT: * 63 yr old T2DM male POD #1 s/p Revision L TKA, poly exchange, resurfacing patella * Fasting BSG is slightly elevated at 175 mg/dL. I suspect improvement moving forward since effect of dexamethasone will be worn off. Continue home doses of Lantus. * Post prandial BSG looked good last evening. Lunch BSG today was elevated (185 mg/dL) however, this BSG was obtained only 1 hour after AM novolog was administered. Novolog parameters were loosened from stress 3 to stress of 2. No ongoing steroids have been ordered. PLAN FOR INPATIENT GLYCEMIC CONTROL: * Basal insulin * Lantus 20 units qAM and 24 units with dinner * Bolus insulin - loosen * NovoLog per scale ACHS or Q6hrs while NPO * Goal Range: Low 110 mg/dL - High 140 mg/dL * Correction Factor: 20 mg/dL/unit * Nutritional / Prandial insulin per carb ratio of 1 unit per 7 grams CHO consumed PLAN FOR DISCHARGE: * A1c 5.9% is at goal * Continue home regimen
[2019-05-20] MEDS: INSULIN GLARGINE SOLOSTAR 100 UNITS/ML 3 ML PEN SC SCH (17:19)
--- NOTE | 2019-05-25 22:03 | Discharge Summary ---
Date of Service May 25, 2019 Admission HPI Per Admitting Provider The patient is a 63 year old male who presents with complaints of painful total knee replacement, unresurfaced patella and instability. The patient has failed outpatient conservative treatments to this point which included Bracing, NSAIDs, home exercise/walking program. The patient's pain and limited function have progressed to the point where they severely hinder their activities of daily living and they no longer tolerate exercise programs. They are requesting to proceed with revision total knee replacement surgery. Principal Diagnosis Revision left total knee replacement, resurfacing patella Discharge Exam LLE NVSI +EHL/FHL/TA/GS SILT grossly, +2 DP pulse, compartments soft NT, dressing cdi. Constitutional WD/WN, vitals as above Discharge Data Allergies Allergy/AdvReac Type Severity Reaction Status Date / Time bee venom protein (honey bee) Allergy Severe Anaphylaxis-WITH Verified 05/19/19 08:33 ANY BEES mushroom Allergy Unknown Anaphylaxis Verified 05/19/19 08:33 atorvastatin AdvReac Unknown Unknown Verified 05/19/19 08:33 diphenhydramine AdvReac Unknown Unknown Verified 05/19/19 08:33 duloxetine AdvReac Unknown Unknown Verified 05/19/19 08:33 oxcarbazepine AdvReac Unknown Unknown Verified 05/19/19 08:33 Consultations 05/19/19 15:50 Consult Case Management - Discharge Planning Routine Procedures Performed Operation Date: 05/19/19 10:35 Actual Procedures p Left Total Knee Arthroplasty Patella Revision and Poly Exchange(Left) - Ivan Laws DO Ordered Studies 05/19/19 05:00 US - OR guided needle placemen Routine Hospital Course (1) Painful total knee replacement, left: The patient is a 63 -year-old male who presents with long standing history of painful left total knee and failed outpatient conservative treatments. The patient's symptoms have progressed to the point where it has been difficult to perform even normal activities of daily living. I indicated the patient for a revision left total knee arthroplasty, resurfacing of patella, the risks, benefits and complications of the procedure include but not limited to infection, bleeding, damage to bone, nerves, vessels, surrounding soft tissue, may develop blood clots, loss of function, leg length discrepancy, dislocation, failure of the components, loosening of the components, the need fo r additional surgery and . The patient wished to proceed with surgery at this time and informed consent was obtained. Hospital Course: On 05/19/19 the patient was taken to the operating room, adequate anesthesia administered and underwent a revision left total knee arthroplasty, resurfacing of patella. The patient tolerated the procedure well and was taken to the PACU in stable condition. Post-operatively the patient was started on a DVT ppx medication and given appropriate IV antibiotics. Consults were placed to physical therapy, occupational therapy and case management. On POD#1, the patient did well overnight and their pain was well controlled. Labs were drawn and the Hgb was 12.6, Cr 2.18. The patient has hx stable CKD III, order for repeat BMP at discharge provided and recommended follow up with PCP and [facility] within 1 week of DC. The patient progressed well with PT. Dressings were changed at this time and the incision was clean, dry and intact. The patients hospital stay was relatively uneventful and they were deemed stable by the orthopedic team and consultants to be discharged home with on 05/20/19. Discharge Instructions: Upon discharge the patient may weight bear as tolerates through their operative extremity. They were instructed to keep the incision clean and dry at all times. The patient may shower but should not submerge the incision, avoid bathing, pools and hot tubes. The patient was given a script for pain medication and should take as instructed. The patient was given a script for DVT ppx 81mg ASA BID and should take as directed. The patient was instructed to not drive or travel for long distances until cleared to do so. If the patient develops any symptoms of fevers, chills, nausea, vomiting, increased redness, swelling, pain or drainage from the surgical site, they should notify the office and/or proceed to the nearest emergency room. The patient should follow up in 10-14 days after surgery for their routine post-operative follow-up appointment and should call the office to confirm the date and time. s/p Revision L TKA, poly exchange, resurfacing patella POD#1 -ancef x 24 -DVT ppx: SCDs, TEDs, 81mg ASA BID -WBAT LLE -PT/OT -PO XR demonstrates a well aligned well fixed prothesis without fracture dislocation -am labs: Hgb 12.6, Cr 2.18. Has hx stable CKD III, will provide order for repeat BMP at discharge and recommended follow up with PCP and [facility] within 1 week of DC. -DC planning - Home with HH Total Time Total Time Spent Total Time Spent (In Minutes): 30 minutes Discharge Plan Discharge Items Patient Disposition: Home - Self-Care Reason For Visit: LEFT KNEE PAIN D/T INTERNAL ORTHOPEDIC PROSTHETIC Discharge Diagnosis: Revision left total knee, patella resurfacing Condition on Discharge: Good Activity: Per Instructions section Lifting: Wait until after follow-up appointment Bathing: Keep incision dry Bathing Comment: No bathing, pools or hot tubs Sexual Activity: Wait until after follow-up appointment Exercise/Sports: Wait until after follow-up appointment Driving/Machine Use: No driving Weightbearing: Left weightbearing Non-emergency contact: Primary Care Provider and Surgeon Call non-emergency contact if: you have any medication questions, your symptoms worsen, your pain is not controlled, your pain is worsening, your pain is unusual for you, your pain is concerning for you, you have a fever, your temperature is above 101, your wound has increased redness, your wound has increased drainage and your wound pain has increased Follow-up/Referrals: Kiran Mills MD [Primary Care Provider] - Diet: Carb Consistent or DM2 Ambulatory Orders: Basic Metabolic Panel (Routine) Timeframe: 3 Days Location: Determined by Patient Ordered By: Ivan Laws Basic Metabolic Panel (Routine) Timeframe: 3 Days Location: Determined by Patient Ordered By: Ivan Palmer Attending Provider Instructions: ACTIVITY RECOMMENDATIONS: SELF CARE INSTRUCTIONS AFTER Revision TOTAL KNEE REPLACEMENT A. You may need to continue a physical therapy program after discharge from the hospital. There are several options available to you. Your doctor will assist you in selecting the best one for you. 1. An out-patient facility 2 to 3 times a week for therapy or home therapy. 2. Continue working on all exercises taught to you in the hospital. Your goals should be to increase bending of your knee to 90 degrees and beyond and to fully straighten your knee. B. You may progress at your own pace from walking with a walker or crutches to a cane; then to no assistive devices. C. Make walking a part of your daily routine. Be up as much as comfortable with rest periods throughout the day. Rest with leg elevation is very important. Use the ice wrap frequently for the first 3-4 weeks. D. There are no restrictions on activities. You may ride in a car, shop, participate in cider maker and all social activities. E. Wear the long elastic stockings (CORNELIA hose) 20 hours a day for 2 weeks after surgery. They can be removed several times a day for laundering and for a bath. F. You may shower, no tub baths until cleared by your doctor. SPECIAL CARE INSTRUCTIONS: VERY IMPORTANT TO READ AND REVIEW A. There are a few signs you need to watch for after you are home. Call [facility] if you notice any of the followin. Increased severe knee pain. Some pain is expected especially when you exercise. 2. Increased swelling in your leg or knee; pain or swelling of the calf muscle in either lower leg. 3. Any fluid drainage from the incision. 4. Shortness of breath or chest pain. B. Please call [facility] at if you have any concerns or questions about your operation or recovery. The doctor or his nurse will return your call promptly. C. You must take antibiotics before dental work, bladder, bowel or other surgery. Your doctor will provide you with a permanent care to carry describing this precaution. IMPORTANT: * REMEMBER TO TAKE ASPIRIN, 81 MG, TWICE DAILY FOR 4 WEEKS UNLESS OTHERWISE DIRECTED. THIS IS YOUR BLOOD THINNER. * HIGH RISK PATIENTS MAY BE PRESCRIBED A STRONGER BLOOD THINNER. THIS WILL BE PROVIDED AT DISCHARGE. * CALL IF INCREASED PAIN, REDNESS, DRAINAGE OR FEVER GREATER THAT 101. * WEAR CORNELIA HOSE 20 HOURS PER DAY FOR 2 WEEKS. * YOU MAY HAVE A LARGE BAND-AID LIKE DRESSING (SILVERON). THIS WILL REMAIN ON YOUR INCISION FOR 7 DAYS, THEN CAN BE REMOVED. IF INCISION IS LEAKING THROUGH DRESSING, CALL THE OFFICE . FOLLOW UP VISIT: If appointment is not already scheduled: Please call [facility] to make a follow-up appointment for 2 weeks after your surgery at . Follow up with your PCP and [facility] within 1 week of discharge Ambulatory for repeat BMP provided. Pending Studies at Discharge: No Stand-Alone Forms: My [facility], Smoking Cessation Medications and DC Order Prescriptions: New aspirin [Ecotrin Low Strength] 81 mg Tablet,Delayed Release (Dr/Ec) 81 mg PO BID 28 Days Qty: 56 RF: 0 acetaminophen [Tylenol Extra Strength] 500 mg Tablet 1,000 mg PO Q8 PRN (Reason: pain) Qty: 90 RF: 0 oxycodone 5 mg Tablet 5 mg PO Q6H MDD 6 tabs PRN (Reason: pain) Qty: 30 RF: 0 sennosides [Senokot] 8.6 mg Tablet 17.2 mg PO HS PRN (Reason: constipation) Qty: 28 RF: 0 Continued losartan 50 mg Tablet 50 mg PO QPM RF: 0 potassium chloride 10 mEq Capsule, Extended Release 10 meq PO BID RF: 0 nitroglycerin [Nitromist] 400 mcg/spray Aerosol,[place] 0.4 mcg sublingual UD PRN (Reason: Chest Pain) RF: 0 diphenoxylate-atropine 2.5-0.025 mg Tablet 1 tab PO TID PRN (Reason: Diarrhea) RF: 0 chlorthalidone 25 mg Tablet 25 mg PO QAM RF: 0 fexofenadine [Jodie Allergy] 180 mg Tablet 360 mg PO BID RF: 0 allopurinol 100 mg Tablet 100 mg PO QPM RF: 0 lorazepam 0.5 mg Tablet 0.5 mg PO BID RF: 0 cyanocobalamin (vitamin B-12) 500 mcg Tablet 500 mcg PO QAM RF: 0 ascorbic acid (vitamin C) [Vitamin C] 500 mg Tablet 500 mg PO QPM RF: 0 tamsulosin 0.4 mg Capsule 0.4 mg PO QPM RF: 0 baclofen 10 mg Tablet 10 mg PO TID RF: 0 nortriptyline 10 mg Capsule 10 - 20 mg PO BID RF: 0 calcium carbonate [Tums] 200 mg calcium (500 mg) Tablet,Chewable 750 mg PO TID RF: 0 docusate sodium [Stool Softener] 100 mg Capsule 100 - 200 mg PO TID PRN (Reason: Constipation) RF: 0 Flovent HFA 220 mcg/actuation Hfa Aerosol Inhaler 2 puff INHALATION BID RF: 0 pravastatin 20 mg Tablet 20 mg PO HS RF: 0 epinephrine [EpiPen] 0.3 mg/0.3 mL Auto-Injector 0.3 mg IM Q3H PRN (Reason: Allergic Symptoms) RF: 0 albuterol sulfate [Ventolin HFA] 90 mcg/actuation Hfa Aerosol Inhaler 2 puff INHALATION Q6H PRN (Reason: Wheezing) RF: 0 fluticasone propionate 50 mcg/actuation [place],Suspension 1 spray INTRANASAL HS RF: 0 dicyclomine 10 mg Capsule 10 mg PO QID RF: 0 vitamin E 400 unit Capsule 400 unit PO QPM RF: 0 cholecalciferol (vitamin D3) [Vitamin D3] 1,000 unit Capsule 1,000 unit PO QAM RF: 0 Humalog U-100 Insulin 100 unit/mL Cartridge 15 unit SUBCUT BID RF: 0 Humalog U-100 Insulin 100 unit/mL Cartridge 20 unit SUBCUT PM RF: 0 fenofibrate 160 mg Tablet 160 mg PO QAM RF: 0 sildenafil (pulm.hypertension) 20 mg Tablet 100 mg PO HS PRN (Reason: Erectile Dysfunction) RF: 0 pregabalin [Lyrica] 150 mg Capsule 150 mg PO BID RF: 0 Lantus Solostar U-100 Insulin 100 unit/mL (3 mL) Insulin Pen 15 - 30 unit SUBCUT TID RF: 0 magnesium oxide-Mg AA chelate 133 mg Tablet 1 tab PO BID RF: 0 Myrbetriq 25 mg Tablet Extended Release 24 Hr 25 mg PO QAM RF: 0 escitalopram oxalate 5 mg Tablet 5 mg PO QPM RF: 0 Discontinued trazodone 50 mg Tablet 50 mg PO HS RF: 0 aspirin [Aspir-81] 81 mg Tablet,Delayed Release (Dr/Ec) 81 mg PO QPM RF: 0 Discharge Orders: Discharge Order (Routine); Ordered 05/20/19 Ordered By: Ivan Salmeron/Other Patient Handouts: Replacement Knee Total, Replacement Total Knee Dc Admission Data Admit Date/Time: 05/19/19 13:07 Attending Provider: Ivan Laws Admit Provider: Ivan Laws Primary Care Provider: Kiran Mills Other Interventions: Discharge Summary Assessment (RN) Last Done: 05/20/19 14:54 DC Date/Time DO NOT enter until pt leaves facility: 05/20/19 18:07
== END 2019-05-20 18:07 | disposition home or self-care (01) | DRG 468 ==
LOC: ASU 07:59 → 2N 13:07